=== PATIENT | male | born 1995 | race Caucasian/White ===

== ENCOUNTER 2016-07-01 11:32 | Day surgery (SDC) | payer BC, OTHER ==
--- NOTE | 2016-07-01 11:59 | EDM.PDOC ---
ED HPI GI/ABDOMINAL - General Chief Complaint: Abdominal Pain Stated Complaint: LOWER ABD PAIN Time Seen by Provider: 07/01/16 11:59 - History of Present Illness INITIAL COMMENTS - FREE TEXT/NARRATIVE: 21-year-old male presents emergency room with abdominal pain. Patient complains of midabdominal discomfortthis started very early this morning over time this pain migrated over to the right lower quadrant and became a little bit more intense. The patient had an episode of lower abdominal discomfort this last summer and he responded favorably to constipation treatment with magnesium citrate. This is different his pain before was on the left this is now on the right. His father drove him in this morning and every bump in the Road aggravated his abdominal pain. Patient's past medical history is otherwise unremarkable. - Related Data Allergies/ADRs: Allergies Allergy/AdvReac Type Severity Reaction Status Date / Time No Known Allergies Allergy Verified 12/07/15 18:50 Home Meds: Home Meds . [No Known Home Meds] 12/07/15 [History] Past Medical History - Past Health History Medical/Surgical History: Denies Medical/Surgical History Social & Family History - Tobacco Use Smoking Status *Q: Never Smoker Second Hand Smoke Exposure: No - Recreational Drug Use Recreational Drug Use: No - Living Situation & Occupation Occupation: employed ED ROS GENERAL - Review of Systems Review Of Systems: See Below Constitutional: Reports: no symptoms. Denies: fever, chills HEENT: Reports: No symptoms Respiratory: Reports: no symptoms Cardiovascular: Reports: No symptoms GI/Abdominal: Reports: Abdominal pain, Nausea, Vomiting. Denies: Constipation, Diarrhea : Reports: no symptoms Musculoskeletal: Reports: no symptoms ED EXAM, GI/ABD - Physical Exam Exam: See Below Exam Limited By: No limitations General Appearance: alert, no apparent distress Head: atraumatic, normocephalic Respiratory/Chest: no respiratory distress, lungs clear, normal breath sounds Cardiovascular: regular rate, rhythm, no edema, no murmur GI/Abdominal: normal bowel sounds, soft. No: non tender (Male) Exam: Other (and Sunday but none he has significant right lower quadrant discomfort with mild rebound tenderness, is indeed present and reproducible. No rigidity.) Back Exam: normal inspection. No: CVA tenderness (L), CVA tenderness (R) Course - Vital Signs Last Recorded V/S: Last Vital Signs Temp 36.9 C 07/01/16 11:53 Pulse 67 07/01/16 11:53 Resp 20 07/01/16 11:53 BP 128/89 07/01/16 11:53 Pulse Ox 99 07/01/16 11:53 - Orders/Labs/Meds Orders: Active Orders 24 hr Category Date Time Status Abdomen 2V AP Flat Upright [CR] Stat Exams 07/01/16 12:19 Taken Ertapenem [INVanz] 1 gm Med 07/01/16 15:43 Active Sodium Chloride 0.9% [Normal Saline] 100 ml IV ONETIME Lactated Ringers [Ringers, Lactated] 1,000 ml Med 07/01/16 12:30 Active IV ASDIRECTED Sodium Chloride 0.9% [Saline Flush] Med 07/01/16 14:01 Active 10 ml FLUSH ONETIME PRN Medication Orders Lactated Ringer's (Ringers, Lactated) 1,000 mls @ 150 mls/hr IV ASDIRECTED CATRINA Last Admin: 07/01/16 12:31 Dose: 150 mls/hr Ertapenem 1 gm/ Sodium (Chloride) 100 mls @ 100 mls/hr IV ONETIME ONE Stop: 07/01/16 16:42 Last Admin: 07/01/16 15:52 Dose: 100 mls/hr Sodium Chloride (Saline Flush) 10 ml FLUSH ONETIME PRN PRN Reason: IV FLUSH Last Admin: 07/01/16 14:21 Dose: 10 ml Labs: Laboratory Tests 07/01/16 07/01/16 07/01/16 Range/Units 12:10 12:10 13:55 WBC 10.50 H (4.23-9.07) K/mm3 RBC 5.78 (4.63-6.08) M/mm3 Hgb 17.2 (13.7-17.5) gm/L Hct 48.4 (40.1-51.0) % MCV 83.7 (79.0-92.2) fl MCH 29.8 (25.7-32.2) pg MCHC 35.5 (32.2-35.5) g/dl RDW Std Deviation 37.4 (35.1-43.9) fL Plt Count 207 (163-337) K/mm3 MPV 9.9 (9.4-12.3) fl Neutrophils % (Manual) 78 H (40-60) % Band Neutrophils % 0 (0-10) % Lymphocytes % (Manual) 13 L (20-40) % Atypical Lymphs % 0 % Monocytes % (Manual) 9 (2-10) % Eosinophils % (Manual) 0 L (0.8-7.0) % Basophils % (Manual) 0 L (0.2-1.2) Platelet Estimate Adequate Plt Morphology Comment Normal RBC Morph Comment Normal Sodium 141 (136-145) mEq/L Potassium 3.9 (3.5-5.1) mEq/L Chloride 103 (98-107) mEq/L Carbon Dioxide 29 (21-32) mEq/L Anion Gap 12.9 (5-15) BUN 12 (7-18) mg/dL Creatinine 1.0 (0.7-1.3) mg/dL Est Cr Clr Drug Dosing TNP Estimated GFR (MDRD) > 60 (>60) mL/min BUN/Creatinine Ratio 12.0 L (14-18) Glucose 93 (74-106) mg/dL Calcium 9.5 (8.5-10.1) mg/dL Total Bilirubin 1.8 H (0.2-1.0) mg/dL AST 15 (15-37) U/L ALT 27 (16-63) U/L Alkaline Phosphatase 74 (46-116) U/L Total Protein 7.6 (6.4-8.2) g/dl Albumin 4.4 (3.4-5.0) g/dl Globulin 3.2 gm/dL Albumin/Globulin Ratio 1.4 (1-2) Urine Color Yellow (Yellow) Urine Appearance Clear (Clear) Urine pH 6.0 (5.0-8.0) Ur Specific [place] 1.025 (1.005-1.030) Urine Protein Trace H (Negative) Urine Glucose (UA) Negative (Negative) Urine Ketones 1+ H (Negative) Urine Occult Blood Trace-intact H (Negative) Urine Nitrite Negative (Negative) Urine Bilirubin Negative (Negative) Urine Urobilinogen 0.2 (0.2-1.0) Ur Leukocyte Esterase Negative (Negative) Urine RBC 0-5 (0-5) /hpf Urine WBC 0-5 (0-5) /hpf Ur Epithelial Cells 0-5 (0-5) /hpf Urine Bacteria Occasional (FEW) /hpf Urine Mucus Moderate H (FEW) /hpf Meds: Medications Generic Name Dose Route Start Last Admin Trade Name Freq PRN Reason Stop Dose Admin Lactated Ringer's 1,000 mls @ 150 mls/hr 07/01/16 12:30 07/01/16 12:31 Ringers, Lactated IV 150 mls/hr ASDIRECTED CATRINA Administration Ertapenem 1 gm/ Sodium 100 mls @ 100 mls/hr 07/01/16 15:43 07/01/16 15:52 Chloride IV 07/01/16 16:42 100 mls/hr ONETIME ONE Administration Sodium Chloride 10 ml 07/01/16 14:01 07/01/16 14:21 Saline Flush FLUSH 10 ml ONETIME PRN Administration IV FLUSH Discontinued Medications Generic Name Dose Route Start Last Admin Trade Name Freq PRN Reason Stop Dose Admin Diatrizoate Meglum/Diatrizoate Sod 90 ml 07/01/16 14:01 07/01/16 14:19 Gastrografin 37% PO 07/01/16 14:02 90 ml ONETIME ONE Administration Hydromorphone HCl 0.5 mg 07/01/16 12:40 07/01/16 12:54 Dilaudid IVPUSH 07/01/16 12:41 0.5 mg ONETIME ONE Administration Hydromorphone HCl 0.5 mg 07/01/16 15:14 07/01/16 15:21 Dilaudid IVPUSH 07/01/16 15:15 0.5 mg ONETIME ONE Administration Iopamidol 125 ml 07/01/16 14:01 07/01/16 14:21 Isovue-300 (61%) IVPUSH 07/01/16 14:02 125 ml ONETIME ONE Administration Metoclopramide HCl 5 mg 07/01/16 15:14 07/01/16 15:20 Reglan IVPUSH 07/01/16 15:15 5 mg ONETIME ONE Administration Ondansetron HCl 4 mg 07/01/16 12:20 07/01/16 12:31 Zofran IVPUSH 07/01/16 12:21 4 mg ONETIME ONE Administration Ondansetron HCl 4 mg 07/01/16 12:40 07/01/16 12:53 Zofran IVPUSH 07/01/16 12:41 4 mg ONETIME ONE Administration - Re-Assessments/Exams Free Text/Narrative Re-Assessment/Exam: 07/01/16 15:08 labs nonspecific. Follow through with a abdominal pelvic CT which could be consistent with early appendicitis but is not clearly definitive. Case discussed with Dr. Oshea who will evaluate the patient. Departure - Departure Time of Disposition: 15:09 Disposition: DC/Tfer to [facility] Clinical Impression: Appendicitis - My Orders Last 24 Hours: My Active Orders 07/01/16 12:19 Abdomen 2V AP Flat Upright [CR] Stat 07/01/16 12:30 Lactated Ringers [Ringers, Lactated] 1,000 ml IV ASDIRECTED 07/01/16 14:01 Sodium Chloride 0.9% [Saline Flush] 10 ml FLUSH ONETIME PRN - Assessment/Plan Last 24 Hours: My Active Orders 07/01/16 12:19 Abdomen 2V AP Flat Upright [CR] Stat 07/01/16 12:30 Lactated Ringers [Ringers, Lactated] 1,000 ml IV ASDIRECTED 07/01/16 14:01 Sodium Chloride 0.9% [Saline Flush] 10 ml FLUSH ONETIME PRN
[2016-07-01] MEDS ORDERED: Ondansetron 4 MG/2 ML SDV IVPUSH ONE ×2 (12:20→12:40)
[2016-07-01] MEDS ORDERED: Lactated Ringers 1,000 ML IV SCH (12:30)
[2016-07-01] MEDS ORDERED: HYDROmorphone 0.5 MG/0.5 ML Syringe IVPUSH ONE ×2 (12:40→15:14)
[2016-07-01] MEDS ORDERED: Iopamidol 612 MG/ML 150 ML Bottle IVPUSH ONE (14:01)
[2016-07-01] MEDS ORDERED: Diatrizoate Meglumine/Diatrizoate Sodium 37% 120 ML Bottle PO ONE (14:01)
[2016-07-01] MEDS ORDERED: Sodium Chloride 0.9% 10 ML Syringe FLUSH PRN (14:01)
--- NOTE | 2016-07-01 14:45 | CT ---
CT abdomen and pelvis Technique: Multiple axial sections were obtained from above the dome of the diaphragm inferiorly through the pubic symphysis. Delayed images were also obtained through the bladder. Comparison: No previous abdominal CT, previous abdominal x-ray is available performed on the same day. Findings: Visualized lung bases shows nothing acute. Liver shows no focal parenchymal abnormality. Spleen appears within normal limits. Adrenal glands show no nodule. Pancreas is with within normal limits. Gallbladder shows no calcified gallstones. Kidneys show symmetric contrast enhancement. Small low-density finding is seen within the mid to lower left kidney measuring about 4 mm which is too small to characterize by Hounsfield unit measurements but most likely represents a minimal cyst. Aorta shows no aneurysmal dilatation. No retroperitoneal adenopathy is seen. No mesenteric abnormalities are appreciated. No pelvic mass or adenopathy is seen. Delayed images shows contrast within the distal ureters and within the bladder. Short tubular structure containing fluid is seen within the right lower quadrant. Finding could represent a short but slightly enlarged appendix. Difficult to exclude early appendicitis, please correlate with patient's symptoms as this is not a definite finding. 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 Impression: 1. Short tubular structure within the right lower abdomen containing fluid. Findings could represent a small but slightly dilated appendix. Difficult to exclude early appendicitis although this is not a definite finding. Please correlate with the patient's symptoms. 2. Other incidental findings as noted above Diagnostic code #3
[2016-07-01] MEDS ORDERED: Metoclopramide 10 MG/2 ML SDV IVPUSH ONE ×2 (15:14→16:06)
[2016-07-01] MEDS ORDERED: Ertapenem 1 GM in Sodium Chloride 0.9% 100 ML IV ONE (15:43)
--- NOTE | 2016-07-01 16:14 | PCM.CONS ---
H&P History of Present Illness - General Date of Service: 07/01/16 Admit Problem/Dx: Admission Diagnosis/Problem Admission Diagnosis/Problem Appendicitis - History of Present Illness Initial Comments - Free Text/Narative: The patient is a 21-year-old man who presents with complaints of abdominal pain for the past approximately 18 hours. They were referred to me by Dr. Abe Echeverria in the emergency department. The pain began at 6 PM yesterday, around the umbilicus and is progressively moved to the right lower quadrant. They have never had pain like this before, except for one time last year when he had left lower quadrant pain when he was constipated.. They have had nausea, vomiting, fever and chills, including emesis x2 in the emergency department. Denies hematochezia, melena, diarrhea or constipation. Last bowel movement was yesterday and the patient did not look at it. They deny any personal or family history of inflammatory bowel disease. No history of colon cancer in first- degree relatives. No previous abdominal operations. White blood cell count was fairly unremarkable at 10,000. CT scan of the Abdomen and Pelvis was performed demonstrating equivocal appendicitis per the radiologist. I did not appreciate any obvious signs of appendicitis on the CT scan. No prior colonoscopy. Here today with mom and dad. Middle Abdomen Pain Score (Numeric/FACES): 5 - Related Data Allergies/Adverse Reactions: Allergies Allergy/AdvReac Type Severity Reaction Status Date / Time No Known Allergies Allergy Verified 12/07/15 18:50 Home Medications: Home Meds . [No Known Home Meds] 12/07/15 [History] Past Medical History - Past Health History Medical/Surgical History: Denies Medical/Surgical History Social & Family History - Family History Family Medical History: Noncontributory Other Family History: No family hx of inflammatory bowel disease or colon cancer in first-degree relatives. No family hx of bleeding/clotting disorders. Mom has a history of severe postoperative nausea and vomiting. - Tobacco Use Smoking Status *Q: Never Smoker Second Hand Smoke Exposure: No - Caffeine Use Caffeine Use: Reports: Coffee, Soda - Alcohol Use Alcohol Use History: No - Recreational Drug Use Recreational Drug Use: No - Living Situation & Occupation Living situation: Reports: single, alone Occupation: employed Social History Comment: Patient works at [employer]. H&P Review of Systems - Review of Systems: Review Of Systems: ROS reveals no pertinent complaints other than HPI. General: Reports: fever, chills HEENT: Reports: no symptoms Pulmonary: Reports: no symptoms Cardiovascular: Reports: no symptoms. Denies: chest pain, palpitations, dyspnea on exertion Gastrointestinal: Reports: Abdominal pain, Nausea, Vomiting. Denies: Bloody stool, Constipation, Diarrhea Musculoskeletal: Reports: no symptoms Skin: Reports: no symptoms Psychiatric: Reports: no symptoms Neurological: Reports: no symptoms Hematologic/Lymphatic: Reports: no symptoms Immunologic: Reports: no symptoms Exam - Exam Exam: See Below - Vital Signs Vital Signs: Last Vital Signs Temp 98.4 F 07/01/16 11:53 Pulse 67 07/01/16 11:53 Resp 20 07/01/16 11:53 BP 128/89 07/01/16 11:53 Pulse Ox 99 07/01/16 11:53 Weight: 150 lb - Exam General: alert, oriented, cooperative, mild distress HEENT: Conjunctiva clear, Hearing intact. No: Scleral icterus Neck: supple, trachea midline, 2 Lungs: Clear to auscultation, Normal respiratory effort Cardiovascular: regular rate, regular rhythm Abdomen: soft, tenderness (RLQ). No: peritoneal signs, distention, guarding, rigidity, rebound, mass Rectal (Males) Exam: Deferred Extremities: normal inspection. No: clubbing, cyanosis, calf tenderness, edema Skin: warm, dry, intact Neurological: normal speech. No: focal deficit Neuro Extensive - Mental Status: alert, oriented x3, normal mood/affect, normal cognition Psychiatric: alert, normal affect, normal mood - Patient Data Lab Results last 24 hrs: Laboratory Results - last 24 hr 07/01/16 07/01/16 07/01/16 Range/Units 12:10 12:10 13:55 WBC 10.50 H (4.23-9.07) K/mm3 RBC 5.78 (4.63-6.08) M/mm3 Hgb 17.2 (13.7-17.5) gm/L Hct 48.4 (40.1-51.0) % MCV 83.7 (79.0-92.2) fl MCH 29.8 (25.7-32.2) pg MCHC 35.5 (32.2-35.5) g/dl RDW Std Deviation 37.4 (35.1-43.9) fL Plt Count 207 (163-337) K/mm3 MPV 9.9 (9.4-12.3) fl Neutrophils % (Manual) 78 H (40-60) % Band Neutrophils % 0 (0-10) % Lymphocytes % (Manual) 13 L (20-40) % Atypical Lymphs % 0 % Monocytes % (Manual) 9 (2-10) % Eosinophils % (Manual) 0 L (0.8-7.0) % Basophils % (Manual) 0 L (0.2-1.2) Platelet Estimate Adequate Plt Morphology Comment Normal RBC Morph Comment Normal Sodium 141 (136-145) mEq/L Potassium 3.9 (3.5-5.1) mEq/L Chloride 103 (98-107) mEq/L Carbon Dioxide 29 (21-32) mEq/L Anion Gap 12.9 (5-15) BUN 12 (7-18) mg/dL Creatinine 1.0 (0.7-1.3) mg/dL Est Cr Clr Drug Dosing TNP Estimated GFR (MDRD) > 60 (>60) mL/min BUN/Creatinine Ratio 12.0 L (14-18) Glucose 93 (74-106) mg/dL Calcium 9.5 (8.5-10.1) mg/dL Total Bilirubin 1.8 H (0.2-1.0) mg/dL AST 15 (15-37) U/L ALT 27 (16-63) U/L Alkaline Phosphatase 74 (46-116) U/L Total Protein 7.6 (6.4-8.2) g/dl Albumin 4.4 (3.4-5.0) g/dl Globulin 3.2 gm/dL Albumin/Globulin Ratio 1.4 (1-2) Urine Color Yellow (Yellow) Urine Appearance Clear (Clear) Urine pH 6.0 (5.0-8.0) Ur Specific [place] 1.025 (1.005-1.030) Urine Protein Trace H (Negative) Urine Glucose (UA) Negative (Negative) Urine Ketones 1+ H (Negative) Urine Occult Blood Trace-intact H (Negative) Urine Nitrite Negative (Negative) Urine Bilirubin Negative (Negative) Urine Urobilinogen 0.2 (0.2-1.0) Ur Leukocyte Esterase Negative (Negative) Urine RBC 0-5 (0-5) /hpf Urine WBC 0-5 (0-5) /hpf Ur Epithelial Cells 0-5 (0-5) /hpf Urine Bacteria Occasional (FEW) /hpf Urine Mucus Moderate H (FEW) /hpf Result Diagrams: 07/01/16 12:10 07/01/16 12:10 Imaging Impressions last 24 hrs: CT images personally reviewed, please see HPI. Consult PN Assessment/Plan Procedures: Procedures C-REACTIVE PROTEIN (12/07/15) COMPLETE CBC W/AUTO DIFF WBC (12/07/15) COMPREHEN METABOLIC PANEL (12/07/15) EMERGENCY DEPT VISIT (12/07/15) HYDRATE IV INFUSION ADD-ON (12/07/15) ROUTINE VENIPUNCTURE (12/07/15) THER/PROPH/DIAG INJ IV PUSH (12/07/15) TX/PRO/DX INJ NEW DRUG ADDON (12/07/15) URINALYSIS AUTO W/SCOPE (12/07/15) X-RAY EXAM OF ABDOMEN (12/07/15) (1) Nausea & vomiting SNOMED Code(s): 66375977 Code(s): R11.2 - NAUSEA WITH VOMITING, UNSPECIFIED Current Visit: Yes (2) Appendicitis SNOMED Code(s): 30986976 Code(s): K37 - UNSPECIFIED APPENDICITIS Current Visit: Yes (3) Abdominal pain SNOMED Code(s): 50910121 Code(s): R10.9 - UNSPECIFIED ABDOMINAL PAIN Current Visit: No Qualifiers: Abdominal location: right lower quadrant Qualified Code(s): R10.31 - Right lower quadrant pain Problem List Initiated/Reviewed/Updated: Yes My Orders last 24 hours: My Active Orders 07/01/16 15:43 Ertapenem [INVanz] 1 gm Sodium Chloride 0.9% [Normal Saline] 100 ml IV ONETIME Plan: 21-year-old with acute appendicitis I discussed with the patient and his parents that his CT scan was quite unremarkable. We discussed the has a small , nonmobile kidney stone on the left. We also discussed that his appendix did not appear significantly diseased at this point, however his story is classic for appendicitis. He would like to proceed with appendectomy, which I do not think is unreasonable. We discussed proceeding with laparoscopic, possible open, appendectomy. Risks of the procedure were discussed including pain, bleeding, infection, scarring, need for additional procedures, risks of anesthesia. The patient found these risks acceptable and agreed to proceed. Invanz 1 gm was started in the Emergency Department.
[2016-07-01] MEDS ORDERED: Ondansetron 4 MG/2 ML SDV ONE (16:15)
[2016-07-01] MEDS ORDERED: Rocuronium 50 MG/5 ML Vial ONE (16:15)
[2016-07-01] MEDS ORDERED: Propofol 200 MG/20 ML SDV ONE (16:16)
[2016-07-01] MEDS ORDERED: Lidocaine 1% 2 ML SDV ONE (16:16)
[2016-07-01] MEDS ORDERED: Midazolam 1 MG/ML 2 ML SDV ONE (16:16)
[2016-07-01] MEDS ORDERED: fentaNYL 250 MCG/5 ML SDV ONE (16:16)
--- NOTE | 2016-07-01 16:19 | PCM.OPNOTE ---
- General Post-Op/Procedure Note Date of Surgery/Procedure: 07/01/16 Operative Procedure(s): Laparoscopic appendectomy Pre Op Diagnosis: Abdominal pain consistent with acute appendicitis Post-Op Diagnosis: Retrocecal appendix with non-perforated appendicitis Anesthesia Technique: General ET tube, Local Primary Surgeon: Cheli Oshea Anesthesia Provider: eBrry Burger Pathology: Appendix Fluid Replacement, Intraop: 1,000 (mL crystalloid ) EBL in mLs: 3 Complications: None Condition: Good Free Text/Narrative:: INDICATION FOR PROCEDURE: The patient is a 21-year-old man who had been referred to me by Dr. Abe Echeverria from the Emergency Department for evaluation for acute appendicitis. I discussed with the patient performing a laparoscopic appendectomy and associated risks of the procedure. The patient found these risks acceptable and agreed to proceed. DESCRIPTION OF PROCEDURE: The patient was taken to the operating room and placed in the supine position. Sequential compressive devices were placed on the bilateral lower extremities. After induction of general endotracheal anesthesia, the abdomen was prepped and draped in the usual sterile fashion. The left arm had been tucked at the patient 's side and pressure points adequately padded. Treatment antibiotics in the form of Invanz had been administered as per protocol. A curvilinear supraumbilical incision was made using a scalpel. The abdomen was bluntly entered using a hemostat. An 0 Vicryl stay suture was placed. A John cannula was introduced into the abdomen and the abdomen was insufflated to 15 mm of mercury. The abdomen was then surveyed. There was a small amount of turbid fluid. The liver, stomach, gallbladder, and other visualized portions of the intra-abdominal organs appeared unremarkable. Two additional 5 mm trocars were then placed under direct visualization after first injecting local anesthetic, one in the suprapubic region and one in the left lower quadrant. The appendix was densely adherent to the terminal ileum and was retrocecal. After appropriate moblization, the appendix was then dissected at the base of the cecum. A mesenteric window was created using a [place]. The appendiceal base was then taken at the cecum using a white load Endo PHIL stapler x 2. The appendiceal mesentery was very carefully taken using the Harmonic scalpel, dissecting the appendix slowly away from the terminal ileum. The appendix was placed into a Endo Catch bag. The abdomen was suctioned and irrigated. There was some slight ooze from the staple line, two 5 mm clips were applied and piece of Surgicel was placed. Hemostasis was confirmed. The 5 mm trocars were removed with no evidence of bleeding. The John cannula and appendix within the EndoCatch bag were then removed. The patient's fascial incision was closed using an 0 Vicryl [id number] suture. Additional local anesthetic was injected brandon-incisionally. The incisions were then closed using subcuticular 4-0 Monocryl suture. Dermabond was placed over the patient's skin incisions. The patient was then awakened from anesthesia, extubated, and transferred to the recovery room in stable condition having tolerated the procedure well. Sponge and instrument counts were reported as correct at the end of the case. POSTOPERATIVE PLAN: I discussed my intraoperative findings and post-operative care instructions with the patient's parents. The patient will be discharged home today. Prescriptions for Percocet 5/325mg and Zofran ODT were given via [facility]. A Scopolamine patch was also applied and is to be removed in 3 days. The patient will follow up with me in 2 weeks for a post-operative check. They are not lift over 20 pounds for the next 4 weeks. They are to call the office with any questions or concerns.
[2016-07-01] MEDS ORDERED: Scopolamine 1.5 MG Transdermal Patch TRDERM PRN (16:44)
[2016-07-01] MEDS ORDERED: diphenhydrAMINE 50 MG/ML SDV ONE (16:52)
[2016-07-01] MEDS ORDERED: Dexamethasone 4 MG/ML 5 ML MDV ONE (16:52)
[2016-07-01] MEDS: Bupivacaine 0.5%/EPINEPHrine 1:200,000 50 ML MDV ONE ×2 (17:00→17:24)
[2016-07-01] MEDS: Lidocaine 1% with EPINEPHrine 1:100,000 20 ML MDV ONE ×2 (17:01→17:24)
[2016-07-01] MEDS ORDERED: Lactated Ringers 1,000 ML ONE (17:07)
[2016-07-01] MEDS ORDERED: Neostigmine Methylsulfate 1 MG/ML 5 ML Syringe ONE (17:35)
[2016-07-01] MEDS ORDERED: HYDROmorphone 0.5 MG/0.5 ML Syringe IVPUSH PRN (17:48)
[2016-07-01] MEDS ORDERED: fentaNYL 100 MCG/2 ML SDV IVPUSH PRN (17:48)
--- NOTE | 2016-07-01 17:50 | PCM.POSTAN ---
POST ANESTHESIA ASSESSMENT - MENTAL STATUS Mental Status: alert, oriented - VITAL SIGNS Pulse Rate: 120 SaO2: 99 Resp Rate: 22 Blood Pressure: 149/87 Temperature: 36.8 C - RESPIRATORY Respiratory Status: respiratory rate WNL, airway patent, O2 saturation stable - CARDIOVASCULAR CV Status: pulse rate WNL, blood pressure stable - GASTROINTESTINAL GI Status: no symptoms - PAIN Pain Score: 0 - POST OP HYDRATION Hydration Status: adequate & stable - OBSERVATIONS Free Text/Narrative:: no anesthesia complications noted
--- NOTE | 2016-07-01 17:51 | PCM.PREANE ---
Preanesthetic Assessment - ANESTHESIA/TRANSFUSION/FAMILY HX Anesthesia/Transfusion History: No Prior Transfusion(s), Prior Anesthesia (no problems) Family History of Anesthesia Reaction: No - REVIEW OF SYSTEMS Constitutional: Reports: feeling ill [employer]: Reports: numbness (at times in hands) Respiratory: Reports: no symptoms Cardiovascular: Reports: no symptoms GI: Reports: nausea, vomiting Other: Reports: none - PHYSICAL ASSESSMENT HR: 120 O2 Sat by Pulse Oximetry: 99 RR: 22 BP: 149/87 Temp: 36.8 C Vital Signs: Last Vital Signs Temp 36.8 C 07/01/16 17:50 Pulse 120 H 07/01/16 17:50 Resp 22 H 07/01/16 17:50 BP 149/87 H 07/01/16 17:50 Pulse Ox 99 07/01/16 17:50 Height: 1.75 m Weight: 68.039 kg NPO Status Date: 07/01/16 NPO Status Time: 00:00 ASA Class: 1E Mental Status: alert & oriented x3 Airway Class: Mallampati = 1 Dentition: Reports: normal dentition Thyro-Mental Finger Breadths: 3 Mouth Opening Finger Breadths: 2 ROM/Head Extension: full Respiratory Status: lungs clear to auscultation bilaterally Cardiovascular Status: regular rate & rhythm, normal S1, S2, no murmur, blood pressure WNL - LAB Values: Laboratory Last Values WBC 10.50 K/mm3 (4.23-9.07) H 07/01/16 12:10 RBC 5.78 M/mm3 (4.63-6.08) 07/01/16 12:10 Hgb 17.2 gm/L (13.7-17.5) 07/01/16 12:10 Hct 48.4 % (40.1-51.0) 07/01/16 12:10 MCV 83.7 fl (79.0-92.2) 07/01/16 12:10 MCH 29.8 pg (25.7-32.2) 07/01/16 12:10 MCHC 35.5 g/dl (32.2-35.5) 07/01/16 12:10 RDW Std Deviation 37.4 fL (35.1-43.9) 07/01/16 12:10 Plt Count 207 K/mm3 (163-337) 07/01/16 12:10 MPV 9.9 fl (9.4-12.3) 07/01/16 12:10 Neutrophils % (Manual) 78 % (40-60) H 07/01/16 12:10 Band Neutrophils % 0 % (0-10) 07/01/16 12:10 Lymphocytes % (Manual) 13 % (20-40) L 07/01/16 12:10 Atypical Lymphs % 0 % 07/01/16 12:10 Monocytes % (Manual) 9 % (2-10) 07/01/16 12:10 Eosinophils % (Manual) 0 % (0.8-7.0) L 07/01/16 12:10 Basophils % (Manual) 0 (0.2-1.2) L 07/01/16 12:10 Platelet Estimate Adequate 07/01/16 12:10 Plt Morphology Comment Normal 07/01/16 12:10 RBC Morph Comment Normal 07/01/16 12:10 Sodium 141 mEq/L (136-145) 07/01/16 12:10 Potassium 3.9 mEq/L (3.5-5.1) 07/01/16 12:10 Chloride 103 mEq/L (98-107) 07/01/16 12:10 Carbon Dioxide 29 mEq/L (21-32) 07/01/16 12:10 Anion Gap 12.9 (5-15) 07/01/16 12:10 BUN 12 mg/dL (7-18) 07/01/16 12:10 Creatinine 1.0 mg/dL (0.7-1.3) 07/01/16 12:10 Est Cr Clr Drug Dosing TNP 07/01/16 12:10 Estimated GFR (MDRD) > 60 mL/min (>60) 07/01/16 12:10 BUN/Creatinine Ratio 12.0 (14-18) L 07/01/16 12:10 Glucose 93 mg/dL (74-106) 07/01/16 12:10 Calcium 9.5 mg/dL (8.5-10.1) 07/01/16 12:10 Total Bilirubin 1.8 mg/dL (0.2-1.0) H 07/01/16 12:10 AST 15 U/L (15-37) 07/01/16 12:10 ALT 27 U/L (16-63) 07/01/16 12:10 Alkaline Phosphatase 74 U/L (46-116) 07/01/16 12:10 Total Protein 7.6 g/dl (6.4-8.2) 07/01/16 12:10 Albumin 4.4 g/dl (3.4-5.0) 07/01/16 12:10 Globulin 3.2 gm/dL 07/01/16 12:10 Albumin/Globulin Ratio 1.4 (1-2) 07/01/16 12:10 Urine Color Yellow (Yellow) 07/01/16 13:55 Urine Appearance Clear (Clear) 07/01/16 13:55 Urine pH 6.0 (5.0-8.0) 07/01/16 13:55 Ur Specific [place] 1.025 (1.005-1.030) 07/01/16 13:55 Urine Protein Trace (Negative) H 07/01/16 13:55 Urine Glucose (UA) Negative (Negative) 07/01/16 13:55 Urine Ketones 1+ (Negative) H 07/01/16 13:55 Urine Occult Blood Trace-intact (Negative) H 07/01/16 13:55 Urine Nitrite Negative (Negative) 07/01/16 13:55 Urine Bilirubin Negative (Negative) 07/01/16 13:55 Urine Urobilinogen 0.2 (0.2-1.0) 07/01/16 13:55 Ur Leukocyte Esterase Negative (Negative) 07/01/16 13:55 Urine RBC 0-5 /hpf (0-5) 07/01/16 13:55 Urine WBC 0-5 /hpf (0-5) 07/01/16 13:55 Ur Epithelial Cells 0-5 /hpf (0-5) 07/01/16 13:55 Urine Bacteria Occasional /hpf (FEW) 07/01/16 13:55 Urine Mucus Moderate /hpf (FEW) H 07/01/16 13:55 - ALLERGIES Allergies/Adverse Reactions: Allergies Allergy/AdvReac Type Severity Reaction Status Date / Time No Known Allergies Allergy Verified 12/07/15 18:50 - BLOOD Blood Available: No Product(s) Available: None - ANESTHESIA PLAN Preop Beta Odalys: No Anesthesia Type Planned: general anesthesia - ACKNOWLEDGEMENTS Pt an appropriate candidate for the planned anesthesia: Yes Alternatives and risks of anesthesia discussed w pt/guardian: Yes Pt/Guardian understands and agree with anesthesia plan: Yes PreAnesthesia Questionnaire - Past Health History Medical/Surgical History: Denies Medical/Surgical History - SUBSTANCE USE Smoking Status *Q: Never Smoker Tobacco Use Within Last Twelve Months: No Second Hand Smoke Exposure: No Days Per Week of Alcohol Use: 0 Number of Drinks Per Day: 0 Total Drinks Per Week: 0 Recreational Drug Use History: No - HOME MEDS Home Medications: Home Meds . [No Known Home Meds] 12/07/15 [History] - CURRENT (IN HOUSE) MEDS Current Meds: Current Medications Fentanyl (Sublimaze) 50 mcg IVPUSH Q5M PRN PRN Reason: Pain Stop: 07/01/16 18:04 Hydromorphone HCl (Dilaudid) 0.5 mg IVPUSH Q15M PRN PRN Reason: Pain Stop: 07/01/16 18:04 Lactated Ringer's (Ringers, Lactated) 1,000 mls @ 150 mls/hr IV ASDIRECTED CATRINA Last Admin: 07/01/16 12:31 Dose: 150 mls/hr Scopolamine (Transderm-Scop) 1.5 mg TRDERM Q72H PRN PRN Reason: Nausea Sodium Chloride (Saline Flush) 10 ml FLUSH ONETIME PRN PRN Reason: IV FLUSH Last Admin: 07/01/16 14:21 Dose: 10 ml Discontinued Medications Bupivacaine HCl/Epinephrine Bitart (Marcaine 0.5%/Epinephrine 1:200,000) Confirm Administered Dose 50 ml .ROUTE .STK-MED ONE Stop: 07/01/16 16:12 Last Admin: 07/01/16 17:00 Dose: 50 ml Dexamethasone (Dexamethasone) Confirm Administered Dose 20 mg .ROUTE .STK-MED ONE Stop: 07/01/16 16:53 Diatrizoate Meglum/Diatrizoate Sod (Gastrografin 37%) 90 ml PO ONETIME ONE Stop: 07/01/16 14:02 Last Admin: 07/01/16 14:19 Dose: 90 ml Diphenhydramine HCl (Benadryl) Confirm Administered Dose 50 mg .ROUTE .STK-MED ONE Stop: 07/01/16 16:53 Fentanyl (Sublimaze) Confirm Administered Dose 250 mcg .ROUTE .STK-MED ONE Stop: 07/01/16 16:17 Glycopyrrolate () Confirm Administered Dose 1 mg .ROUTE .STK-MED ONE Stop: 07/01/16 17:36 Hydromorphone HCl (Dilaudid) 0.5 mg IVPUSH ONETIME ONE Stop: 07/01/16 12:41 Last Admin: 07/01/16 12:54 Dose: 0.5 mg Hydromorphone HCl (Dilaudid) 0.5 mg IVPUSH ONETIME ONE Stop: 07/01/16 15:15 Last Admin: 07/01/16 15:21 Dose: 0.5 mg Ertapenem 1 gm/ Sodium (Chloride) 100 mls @ 100 mls/hr IV ONETIME ONE Stop: 07/01/16 16:42 Last Admin: 07/01/16 15:52 Dose: 100 mls/hr Lactated Ringer's (Ringers, Lactated) Confirm Administered Dose 1,000 mls @ as directed .ROUTE .STK-MED ONE Stop: 07/01/16 17:08 Iopamidol (Isovue-300 (61%)) 125 ml IVPUSH ONETIME ONE Stop: 07/01/16 14:02 Last Admin: 07/01/16 14:21 Dose: 125 ml Lidocaine HCl (Lidocaine 1%) Confirm Administered Dose 4 ml .ROUTE .STK-MED ONE Stop: 07/01/16 16:17 Lidocaine/Epinephrine (Xylocaine 1% With Epinephrine 1:100,000) Confirm Administered Dose 20 ml .ROUTE .STK-MED ONE Stop: 07/01/16 16:12 Last Admin: 07/01/16 17:01 Dose: 20 ml Metoclopramide HCl (Reglan) 5 mg IVPUSH ONETIME ONE Stop: 07/01/16 15:15 Last Admin: 07/01/16 15:20 Dose: 5 mg Metoclopramide HCl (Reglan) 5 mg IVPUSH ONETIME ONE Stop: 07/01/16 16:07 Last Admin: 07/01/16 16:11 Dose: 5 mg Midazolam HCl (Versed 1 Mg/Ml) Confirm Administered Dose 2 mg .ROUTE .STK-MED ONE Stop: 07/01/16 16:17 Neostigmine Methylsulfate (Neostigmine) Confirm Administered Dose 5 mg .ROUTE .STK-MED ONE Stop: 07/01/16 17:36 Ondansetron HCl (Zofran) 4 mg IVPUSH ONETIME ONE Stop: 07/01/16 12:21 Last Admin: 07/01/16 12:31 Dose: 4 mg Ondansetron HCl (Zofran) 4 mg IVPUSH ONETIME ONE Stop: 07/01/16 12:41 Last Admin: 07/01/16 12:53 Dose: 4 mg Ondansetron HCl (Zofran) Confirm Administered Dose 4 mg .ROUTE .STK-MED ONE Stop: 07/01/16 16:16 Propofol (Diprivan 20 Ml) Confirm Administered Dose 200 mg .ROUTE .STK-MED ONE Stop: 07/01/16 16:17 Rocuronium [place] (Zemuron) Confirm Administered Dose 50 mg .ROUTE .STK-MED ONE Stop: 07/01/16 16:16
[2016-07-01] MEDS ORDERED: Acetaminophen/oxyCODONE 325-5 MG Tab PO ONE (18:17)
[2016-07-01 20:07] VITALS: BP 122/81
--- NOTE | 2016-07-03 08:18 | CR ---
Abdomen: Supine and upright views of the abdomen were obtained. Comparison: Previous abdominal x-ray of 12/07/15. Bowel gas pattern appears normal. No free air is seen. Bony structures are unremarkable. No abnormal calcifications are seen. Calcifications are noted within the pelvis which are felt compatible with phleboliths. Impression: 1. Nothing acute is appreciated on two-view abdominal x-ray. No significant interval change is seen from previous exam. Diagnostic code #2
== END 2016-07-01 19:29 | disposition home or self-care (01) ==
LOC: JD.ED 11:32 → JD.SDS 15:51
PROVIDERS: ATTEND Surgery
DX: K35.80 Unspecified acute appendicitis (principal)
CPT/HCPCS: 36415; 44970; 74020; 74177; 80053; 81001; 85025; 88304; 96361; 96365; 96375; 96376; 99285; A9270; J1100; J1170; J1200; J1335; J2250; J2405; J2710; J2765; J3010; J7030; J7050; J7120; Q9963; Q9967; 00840; 99284; J2704

== ENCOUNTER 2019-12-16 15:55 | Emergency (ER) | payer BC ==
[2019-12-16 16:06] VITALS: BP 124/70; PULSE 73
--- NOTE | 2019-12-16 16:20 | EDM.PDOC ---
ED HPI GENERAL MEDICAL PROBLEM - General Chief Complaint: Chest Pain Stated Complaint: CHEST PAIN Time Seen by Provider: 12/16/19 16:04 Source of Information: Reports: Patient, RN Notes Reviewed History Limitations: Reports: No Limitations - History of Present Illness INITIAL COMMENTS - FREE TEXT/NARRATIVE: Patient is a 24-year-old male who presents to the ED for his chest pain. He notes that this did start last night, he states that the pain started in his left chest, and seem to shoot straight through to his back, and he appreciated it radiated to his jaw as well. He notes that this was a sharp stabbing pain like someone was stabbing him with a knife. He thinks maybe it could have radiated to his right chest, but states it stayed mostly in his left side. He does not complain of any provoking or alleviating factors. He noted that it lasted for about 8 minutes last night. He takes fluoxetine 20 mg daily, is seen by Dr. Lovell as his primary care provider. He denies any past medical history otherwise, and he does not believe that his family has any sort of early cardiac demise that he is ever been told. He denies any fever/chills, cough/shortness of breath, nausea/vomiting/diarrhea. He reports that he was in good health prior to the chest pain. He did not do any heavy lifting, or other odd movements prior to the chest pain. Chest Pain Score (Numeric/FACES): 1 - Related Data Allergies Allergy/AdvReac Type Severity Reaction Status Date / Time No Known Allergies Allergy Verified 12/16/19 16:06 Home Meds: Home Meds . [No Known Home Meds] 12/07/15 [History] Past Medical History - Past Health History Medical/Surgical History: Denies Medical/Surgical History Psychiatric History: Reports: Depression - Past Surgical History GI Surgical History: Reports: Appendectomy Social & Family History - Family History Family Medical History: Noncontributory - Tobacco Use Smoking Status *Q: Never Smoker - Caffeine Use Caffeine Use: Reports: Coffee, Soda - Recreational Drug Use Recreational Drug Use: No - Living Situation & Occupation Living situation: Reports: Single, Alone Occupation: Employed ED ROS GENERAL - Review of Systems Review Of Systems: Comprehensive ROS is negative, except as noted in HPI. ED EXAM, GENERAL - Physical Exam Exam: See Below Exam Limited By: No Limitations General Appearance: Alert, WD/WN, No Apparent Distress Respiratory/Chest: No Respiratory Distress, Lungs Clear, Normal Breath Sounds, No Accessory Muscle Use, Other (tender to left chest around the 4th-5th rib mid clavicular line.) Cardiovascular: Normal Peripheral Pulses, Regular Rate, Rhythm, No Edema, No Murmur Peripheral Pulses: 2+: Radial (L), Radial (R) Extremities: Normal Inspection, Normal Capillary Refill Neurological: Alert, Oriented, Normal Cognition, No Motor/Sensory Deficits Psychiatric: Normal Affect, Normal Mood Skin Exam: Warm, Dry, Intact, Normal Color, No Rash EKG INTERPRETATION EKG Date: 12/16/19 Time: 16:05 Rhythm: NSR Rate (Beats/Min): 81 [place]: Normal P-Wave: Present QRS: Normal ST-T: Normal QT: Normal Comparison: NA - No Prior EKG EKG Interpretation Comments: No obvious ischemia or acute ST changes noted, reviewed by myself and Dr. Campbell. Course - Vital Signs Last Recorded V/S: Last Vital Signs Temp 97.6 F 12/16/19 16:03 Pulse 73 12/16/19 16:03 Resp 16 12/16/19 16:03 BP 124/70 12/16/19 16:03 Pulse Ox 95 12/16/19 16:03 - Orders/Labs/Meds Orders: Active Orders 24 hr Category Date Time Status EKG Documentation Completion [RC] STAT Care 12/16/19 16:07 Ordered Chest 1V Frontal [CR] Stat Exams 12/16/19 16:07 Ordered Labs: Laboratory Tests 12/16/19 12/16/19 Range/Units 16:28 16:28 WBC 4.89 (4.23-9.07) K/mm3 RBC 5.23 (4.63-6.08) M/mm3 Hgb 15.6 D (13.7-17.5) gm/dl Hct 43.4 (40.1-51.0) % MCV 83.0 (79.0-92.2) fl MCH 29.8 (25.7-32.2) pg MCHC 35.9 H (32.2-35.5) g/dl RDW Std Deviation 37.9 (35.1-43.9) fL Plt Count 213 (163-337) K/mm3 MPV 9.6 (9.4-12.3) fl Neut % (Auto) 60.3 (34.0-67.9) % Lymph % (Auto) 25.4 (21.8-53.1) % [place] % (Auto) 10.8 (5.3-12.2) % Eos % (Auto) 2.5 (0.8-7.0) Baso % (Auto) 1.0 (0.1-1.2) % Neut # (Auto) 2.95 (1.78-5.38) K/mm3 Lymph # (Auto) 1.24 L (1.32-3.57) K/mm3 [place] # (Auto) 0.53 (0.30-0.82) K/mm3 Eos # (Auto) 0.12 (0.04-0.54) K/mm3 Baso # (Auto) 0.05 (0.01-0.08) K/mm3 Sodium 139 (136-145) mEq/L Potassium 3.8 (3.5-5.1) mEq/L Chloride 105 (98-107) mEq/L Carbon Dioxide 26 (21-32) mEq/L Anion Gap 11.8 (5-15) BUN 14 (7-18) mg/dL Creatinine 1.1 (0.7-1.3) mg/dL Est Cr Clr Drug Dosing 101.77 mL/min Estimated GFR (MDRD) > 60 (>60) mL/min BUN/Creatinine Ratio 12.7 L (14-18) Glucose 87 (74-106) mg/dL Calcium 9.1 (8.5-10.1) mg/dL Magnesium 2.0 (1.8-2.4) mg/dl Total Bilirubin 0.4 (0.2-1.0) mg/dL AST 23 (15-37) U/L ALT 43 (16-63) U/L Alkaline Phosphatase 79 (46-116) U/L Troponin I < 0.017 (0.00-0.056) ng/mL Total Protein 7.2 (6.4-8.2) g/dl Albumin 3.9 (3.4-5.0) g/dl Globulin 3.3 gm/dL Albumin/Globulin Ratio 1.2 (1-2) - Re-Assessments/Exams Free Text/Narrative Re-Assessment/Exam: 12/16/19 16:19 Patient presents to the ED for evaluation of his left-sided chest pain. EKG was obtained at time of triage and is completely normal. This was read by myself and Dr. Campbell. He will also get a chest x-ray, and basic labs at this time. This is most likely chest wall, or noncardiac etiology in nature. 12/16/19 17:11 X-ray, and labs are all unremarkable. Patient will be discharged home with general recommendations, again this is most likely chest wall pain in nature. Departure - Departure Time of Disposition: 17:11 Disposition: Home, Self-Care 01 Condition: Good Clinical Impression: Left-sided chest pain Instructions: Nonspecific Chest Pain, Adult, [id number], Chest Wall Pain, [id number] Referrals: Everette Waddell MD [Primary Care Provider] - Forms: ED Department Discharge Additional Instructions: You were evaluated in the ER today for your left-sided chest pain. Laboratory evaluation, EKG, chest x-ray are all within normal limits at this time. There is no sign at all that you are suffering from any sort of heart attack in nature. Your pain is most likely musculoskeletal in origin. You may take 500 mg Tylenol or 600 mg ibuprofen every 6 hours as needed for further pain relief. Do not exceed 4000 mg Tylenol or 600 mg ibuprofen in a 24-hour time span. Please return to the ER at any time if your symptoms should change or worsen. Sepsis Event Note (ED) - Evaluation Sepsis Screening Result: No Definite Risk - Focused Exam Vital Signs: Vital Signs Temp Pulse Resp BP Pulse Ox 12/16/19 16:03 97.6 F 73 16 124/70 95 - My Orders Last 24 Hours: My Active Orders 12/16/19 16:07 EKG Documentation Completion [RC] STAT Chest 1V Frontal [CR] Stat - Assessment/Plan Last 24 Hours: My Active Orders 12/16/19 16:07 EKG Documentation Completion [RC] STAT Chest 1V Frontal [CR] Stat
--- NOTE | 2019-12-17 09:55 | CR ---
Chest: Portable view of the chest was obtained. Comparison: No prior chest imaging is available. Heart size and mediastinum are normal. Lungs are clear with no acute parenchymal change. Minimal scoliosis is seen within the spine. Impression: 1. Minimal scoliosis. 2. Nothing acute is appreciated on portable chest x-ray. Diagnostic code #2 Study was dictated in MDT
== END 2019-12-16 17:22 | disposition home or self-care (01) ==
LOC: JD.ED 15:55
DX: R07.9 Chest pain, unspecified (principal)
CPT/HCPCS: 36415; 71045; 71045-26; 80053; 83735; 84484; 85025; 93005; 93010; 99283; 99285-25